=== PATIENT | female | born 1970 | race Asian ===

== ENCOUNTER → 2022-01-20 | Outpatient (CLI) | payer OTHER ==
--- NOTE | 2022-01-20 14:43 | KCIC ---
Study: MRI right ankle without contrast INDICATION: Right lateral ankle swelling. No reported injury. COMPARISON: None. TECHNIQUE: Multiplanar MR imaging of the right ankle performed without the use of intravenous or intr a-articular contrast. FINDINGS: Bones/cartilage: No fracture or stress reaction. No advanced arthrosis. No high-grade/full-thickness chondral defect at the ankle. Os subfibulare and an os calcaneus secundarius. Plantar calcaneal spur. Trace enthesophyte formation at the Achilles insertion. Ligaments: Unremarkable distal syndesmosis, ATFL, CFL and PTFL. The deltoid ligament complex is intac t. Unremarkable spring and Lisfranc ligaments. Musculotendinous: Intact and normally located peroneal and flexor tendons. Unremarkable extensors. Wi thin normal limits signal and morphology of the Achilles. No significant volume tendon sheath fluid. Generalized fatty infiltration of the abductor digiti minimi. Trace edema at the proximal aspect of t he extensor digitorum brevis. Sinus Tarsi: Mostly maintained fatty signal. Thin ganglion cyst at the lateral opening of the tarsal sinus. Tarsal tunnel: Flexor digitorum accessorius longus inserting on the quadratus plantae. The muscle bel ly contacts the posterior margin of the neurovascular bundle. Plantar fascia: Mildly thickened central band but without findings of active plantar fasciitis. Miscellaneous: Small amount of ankle joint fluid. No significant joint effusion throughout the foot. Small amount of fluid within the retrocalcaneal bursa. IMPRESSION: 1. No acute osseous abnormality or advanced arthrosis. Favored more likely an os calcaneus secondari us as opposed to a chronic anterior calcaneal process fracture. This is felt most likely an incidenta l finding but has been reported as a source of pain though there is no adjacent marrow edema. 2. Intact tendons without significant tendinosis or tenosynovitis. No ligamentous disruption. 3. Thin ganglion cyst emanating out the lateral opening of the tarsal sinus and extending along the dorsal margin of the talonavicular joint. 4. Flexor digitorum accessorius longus muscle contacting the posterior aspect of the tarsal tunnel n eurovascular bundle. Generalized fatty infiltration of the abductor digiti minimi which could be seco ndary to this accessory muscle or unrelated. No muscular edema to indicate subacute denervation. Electronically signed by: ALEXANDR REYES MD (01/20/2022 2:40 PM) [id number]
== END ==
LOC: KCIC MRI 10:59
PROVIDERS: ATTEND Family Medicine
DX: M67.471 Ganglion, right ankle and foot (principal); M77.31 Calcaneal spur, right foot; M25.871 Other specified joint disorders, right ankle and foot; M25.471 Effusion, right ankle
CPT/HCPCS: 73721